=== PATIENT | male | born 1995 | race Caucasian/White ===

== ENCOUNTER 2017-07-14 04:40 | Inpatient (IN) | payer OTHER ==
[2017-07-14] VITALS (8 sets, daily range): BP systolic 117–146; BP diastolic 59–88; PULSE 82–113; RESP 16–20; TEMP 96.9–98.8; O2SAT 97–100
[~2017-07-14] VITALS: Ht 182.9 cm; Wt 113.0 kg
[~2017-07-14 04:40] MED LIST: IBUP-238 PO; Z.0.NO CURRENT MEDS
[2017-07-14] MEDS ORDERED: SODIUM CHLORIDE 0.9% FLUSH 10 ML FLUSH IVF PRN (05:00)
[2017-07-14 05:05] LABS: AUTOMATED NEUTROPHIL # 23.8 TH/MM3 (1.8-7.7); BASOPHIL # 0.1 TH/MM3 (0-0.2); BASOPHIL % 0.3 % (0.0-2.0); EOSINOPHIL # 0.1 TH/MM3 (0-0.4); EOSINOPHIL % 0.4 % (0.0-4.0); HEMATOCRIT 44.5 % (39.0-51.0); HEMOGLOBIN 15.2 GM/DL (13.0-17.0); LYMPH % 6.4 % (9.0-44.0); LYMPHOCYTE # 1.7 TH/MM3 (1.0-4.8); MEAN CELL VOLUME 90.8 FL (80.0-100.0); MEAN CORPUSCULAR HGB CONC 34.1 % (32.0-36.0); MEAN PLATELET VOLUME 9.7 FL (7.0-11.0); MONO % 5.6 % (0.0-8.0); MONOCYTE # 1.5 TH/MM3 (0-0.9); NEUT % 87.3 % (16.0-70.0); PLATELET COUNT 231 TH/MM3 (150-450); RED BLOOD COUNT 4.89 MIL/MM3 (4.50-5.90); RED CELL DISTRIBUTION WIDTH 12.9 % (11.6-17.2); WHITE BLOOD COUNT 27.3 TH/MM3 (4.0-11.0)
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
[2017-07-14] MEDS ORDERED: IOHEXOL 350 MG/ML 10 ML VIAL (for RAD DIAG) IVCONTRAST ONE (05:21)
[2017-07-14 05:23] LABS: BICARBONATE 25.8 MEQ/L (21.0-32.0); CALCIUM 8.5 MG/DL (8.5-10.1); CREATININE 1.13 MG/DL (0.60-1.30)
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
[2017-07-14] MEDS: oxyCODONE/ACETAMINOPHEN 5 MG/325 MG TAB PO PRN ×3 (09:11→22:29)
[2017-07-14] MEDS ORDERED: ONDANSETRON HCL 4 MG/2 ML VIAL IV PUSH PRN (10:00)
[2017-07-14] MEDS ORDERED: ENALAPRILAT 1.25 MG/ML VIAL IV PUSH PRN (10:00)
[2017-07-14] MEDS ORDERED: SODIUM CHLORIDE 0.9% FLUSH 10 ML FLUSH IV FLUSH PRN (10:00)
[2017-07-14] MEDS: FAMOTIDINE 20 MG TAB PO SCH ×2 (10:59→21:03)
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
[2017-07-14] MEDS ORDERED: DOCU1CAP39 PO (20:31)
[2017-07-14] MEDS: MAGNESIUM HYDROXIDE SUSP 30 ML CUP PO SCH (21:03)
[2017-07-14] MEDS: DOCUSATE SODIUM 100 MG CAP PO SCH (21:03)
[2017-07-15 00:21] VITALS: BP 134/70; PULSE 109; RESP 17; TEMP 97.6; O2SAT 94
[2017-07-15] MEDS: oxyCODONE/ACETAMINOPHEN 5 MG/325 MG TAB PO PRN ×3 (03:47→13:58)
[2017-07-15 04:37] VITALS: BP 139/81; PULSE 82; RESP 18; TEMP 98.1; O2SAT 98
[2017-07-15 05:49] LABS: AUTOMATED NEUTROPHIL # 5.3 TH/MM3 (1.8-7.7); BASOPHIL % 0.4 % (0.0-2.0); EOSINOPHIL # 0.6 TH/MM3 (0-0.4); EOSINOPHIL % 6.7 % (0.0-4.0); HEMATOCRIT 43.6 % (39.0-51.0); HEMOGLOBIN 14.8 GM/DL (13.0-17.0); LYMPH % 24.8 % (9.0-44.0); LYMPHOCYTE # 2.3 TH/MM3 (1.0-4.8); MEAN CELL VOLUME 91.3 FL (80.0-100.0); MEAN CORPUSCULAR HEMOGLOBIN 30.9 PG (27.0-34.0); MEAN CORPUSCULAR HGB CONC 33.9 % (32.0-36.0); MONO % 10.9 % (0.0-8.0); NEUT % 57.2 % (16.0-70.0); PLATELET COUNT 208 TH/MM3 (150-450); RED BLOOD COUNT 4.77 MIL/MM3 (4.50-5.90); WHITE BLOOD COUNT 9.2 TH/MM3 (4.0-11.0)
[2017-07-15 06:12] LABS: BICARBONATE 26.6 MEQ/L (21.0-32.0); CALCIUM 8.5 MG/DL (8.5-10.1); CREATININE 0.85 MG/DL (0.60-1.30)
[2017-07-15 08:00] VITALS: BP 133/71; PULSE 86; RESP 18; TEMP 97.5; O2SAT 99
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
[2017-07-15] MEDS: FAMOTIDINE 20 MG TAB PO SCH (08:30)
[2017-07-15] MEDS: MAGNESIUM HYDROXIDE SUSP 30 ML CUP PO SCH (08:30)
[2017-07-15] MEDS: DOCUSATE SODIUM 100 MG CAP PO SCH (08:30)
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
[2017-07-15] MEDS ORDERED: INFLUENZA VIRUS VACCINE (QUADRIVALENT) 0.5 ML SYR IM ONE (10:00)
[2017-07-15 12:00] VITALS: BP 137/75; PULSE 90; RESP 18; TEMP 97.6; O2SAT 97
[2017-07-15] MEDS ORDERED: OXYC1TAB63 PO (13:40)
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
[2017-07-15 16:00] VITALS: BP 147/80; PULSE 107; RESP 18; TEMP 98.5; O2SAT 97
--- NOTE | 2017-07-15 16:36 | PD.ORT.PN ---
Subjective Subjective Remarks The patient is OOB in chair with decreased right ankle pain since being placed in a splint. Patient denies fevers, chills, tingling, or numbness to the RLE Objective Vitals Vital Signs Date Time Temp Pulse Resp B/P (MAP) Pulse Ox O2 Delivery O2 Flow Rate FiO2 07/15/17 16:00 98.5 107 18 147/80 (102) 97 07/15/17 12:00 97.6 90 18 137/75 (95) 97 07/15/17 09:47 17 07/15/17 08:00 97.5 86 18 133/71 (91) 99 07/15/17 04:37 98.1 82 18 139/81 (100) 98 07/15/17 00:21 97.6 109 17 134/70 (91) 94 07/14/17 20:00 98.8 82 20 146/73 (97) 97 I/O 07/14/17 07/14/17 07/14/17 07/15/17 07/15/17 07/15/17 07:00 15:00 23:00 07:00 15:00 23:00 Intake Total 950 ml 780 ml Output Total 1200 ml 1100 ml Balance -250 ml -320 ml Intake Oral 950 ml 780 ml Output Urine Total 1200 ml 1100 ml Stool Total 0 ml Result Diagram: 07/15/17 0440 07/15/17 0440 Imaging Last 24 hours Impressions Chest X-Ray 07/15/17 0000 Signed Impressions: Service Date/Time: Saturday, July 15, 2017 09:05 - CONCLUSION: No acute disease. Jerry Morton MD Objective Remarks Right ankle splint and dressing is clean, dry, and intact. Patient has good sensation to light touch x 5 and BCR X 5. Minimal swelling to toes. Ecchymosis to the right hip and right lower quadrant Abrasion to right knee Symetric chest wall rise and nonlabored breathing Assessment & Plan Assessment and Plan Right ankle talus fracture Right knee contusion Pulmonary contusion The patient has obtained the splint that was ordered for the right ankle. Patient will continue to wear this until his f/u appointment in the office in 1- 2 weeks. The patient will remain non-weightbearing on the RLE. We will follow the patient's ankle closely in the office with repeat x-rays. Calin Wiggins Jul 15, 2017 16:36
== END 2017-07-15 16:24 | disposition home or self-care (01) | DRG 206 ==
LOC: NEPE 04:40 → NEDA 05:47 → N07B 10:29
PROVIDERS: ADMIT Surgery; ATTEND Surgery
DX: S27.321A Contusion of lung, unilateral, initial encounter (principal); F17.200 Nicotine dependence, unspecified, uncomplicated; S92.141A Displaced dome fracture of right talus, initial encounter for closed fracture; S80.01XA Contusion of right knee, initial encounter; S30.1XXA Contusion of abdominal wall, initial encounter; V47.5XXA Car driver injured in collision with fixed or stationary object in traffic accident, initial encounter; Y92.410 Unspecified street and highway as the place of occurrence of the external cause; Z23 Encounter for immunization
CPT/HCPCS: 70450; 71010; 71260; 72125; 73610; 73700; 74177; 80048; 85025; 90471; 90686; 94150; 94640; 94667; 94668; 99285; E0113; G0008; Q2038; Q9967